=== PATIENT | male | born 1975 | race African-American/Black ===

== ENCOUNTER 2016-12-12 10:31 | Emergency (ER) | payer BC ==
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
[~2016-12-12 10:31] MED LIST: ASPIRIN81 M2 PO; ATENOLOL PO; BACTRIM DS TABL1 TA1 PO; BENZONATATE PO; CATAPRES-TTS-20.2 M1 EXT; COREG6.25 MG PO; DARVOCET-N 1001 TAB PO; ERYC250 MG PO; FOLIC ACID1 MG PO; HCTZ PO; HYDRALAZINE HCL25 MG PO; IBUPROFEN200 M1 PO; LASIX20 MG PO; LISINOPRIL PO; MICRO-K PO; NO MEDICATIONS; NORVASC PO; ONE-A-DAY WEIGH1 TAB PO; PAXIL PO; POTASSIUM40 MEQ/15 PO; RISPERDAL1 M1 PO; THIAMINE HCL100 MG PO; UNKOWN B/P MED; ZESTRIL5 MG PO
== END 2016-12-12 12:42 | disposition home or self-care (01) ==
LOC: CED 10:31
DX: S76.012A Strain of muscle, fascia and tendon of left hip, initial encounter (principal); F17.200 Nicotine dependence, unspecified, uncomplicated; Z88.5 Allergy status to narcotic agent; Z88.6 Allergy status to analgesic agent; I11.0 Hypertensive heart disease with heart failure; I50.9 Heart failure, unspecified; W19.XXXA Unspecified fall, initial encounter; Y92.410 Unspecified street and highway as the place of occurrence of the external cause
CPT/HCPCS: 73502; 99283